=== PATIENT | female | born 1950 | race Caucasian/White ===

== ENCOUNTER 2016-11-03 11:06 | Observation (INO) | payer OTHER ==
[~2016-11-03] VITALS: Ht 160 cm; Wt 83.0 kg
[2016-11-03 11:43] LABS: HEMATOCRIT 42.3 % (36.0-46.0); MCH 28.5 PG (29.0-34.0); MCHC 33.3 G/DL (30.0-36.0); MCV 85.6 FL (83-99); MEAN PLAT.VOLUME 9.6 uM^3 (9.5-12.4); PLATELET COUNT 232 K/uL (156-360); RBC DIS.WIDTH-SD 39.5 % (39-53); RED BLOOD COUNT 4.94 M/uL (3.80-5.20); WHITE BLOOD COUNT 5.1 K/uL (4.1-10.2)
[2016-11-03 11:56] LABS: CHLORIDE 108 mEq/L (99-109); POTASSIUM 4.1 mEq/L (3.7-5.4); SODIUM 142 mEq/L (136-147)
[2016-11-03 11:58] LABS: GLUCOSE 103 mg/dL (70-99)
[2016-11-03 11:59] LABS: ANION GAP 8 MEQ/L (2-14)
[2016-11-03 12:02] LABS: GFR ESTIMATE (CALCULATED) > 59 mL/min/
[2016-11-03 12:03] LABS: UREA NITROGEN (BUN) 16 mg/dL (9-23)
[2016-11-03 12:04] LABS: TROP-I INTERPRETATION NEGATIVE; TROPONIN-I < 0.01 ng/mL (0.0-0.30)
[2016-11-03] MEDS ORDERED: LOVASTATIN10 MG PO (12:44)
[2016-11-03] MEDS ORDERED: OMEPRAZOLE40 M1 PO (12:45)
[2016-11-03] MEDS ORDERED: CARVEDILOL6.25 MG PO (12:45)
[2016-11-03 13:33] LABS: LIPASE 14 U/L (1.0-51.0)
[2016-11-03] MEDS ORDERED: ONE-A-DAY ESSE1 EAC1 PO (15:43)
[2016-11-03] MEDS ORDERED: TYLENOL EXTRA500 MG PO (15:44)
[2016-11-03 17:00] VITALS: BP 133/76
[2016-11-03 20:28] VITALS: BP 114/68
[2016-11-03 21:27] LABS: TROP-I INTERPRETATION NEGATIVE; TROPONIN-I < 0.01 ng/mL (0.0-0.30)
[2016-11-04 01:20] VITALS: BP 99/64
[2016-11-04 04:50] VITALS: BP 116/67
[2016-11-04 06:11] LABS: TROP-I INTERPRETATION NEGATIVE; TROPONIN-I 0.01 ng/mL (0.0-0.30)
[2016-11-04 09:13] VITALS: BP 132/78
[2016-11-04] MEDS ORDERED: NITROSTAT0.4 MG SL (09:39)
== END 2016-11-04 13:11 | disposition home or self-care (01) ==
LOC: EME 11:06 → EDOF 15:42 → 5WEST 16:53
PROVIDERS: Internal Medicine
DX: R07.9 Chest pain, unspecified (principal); R10.13 Epigastric pain; I10 Essential (primary) hypertension; K44.9 Diaphragmatic hernia without obstruction or gangrene; E78.5 Hyperlipidemia, unspecified; Z88.6 Allergy status to analgesic agent; Z82.49 Family history of ischemic heart disease and other diseases of the circulatory system; Z83.3 Family history of diabetes mellitus
CPT/HCPCS: 71020; 80048; 83690; 84484; 85027; 93005; 99281; 99285; G0378; J1650; J2270; J2405

== ENCOUNTER 2017-03-18 09:30 | Emergency (ER) | payer OTHER ==
[~2017-03-18] VITALS: Ht 160 cm; Wt 78.6 kg
[~2017-03-18 09:30] MED LIST: CARVEDILOL6.25 MG PO; LOVASTATIN10 MG PO; NITROSTAT0.4 MG SL; OMEPRAZOLE40 M1 PO; ONE-A-DAY ESSE1 EAC1 PO; TYLENOL EXTRA500 MG PO
[2017-03-18] MEDS ORDERED: NORCO 5/3251 TABLET PO (12:35)
[2017-03-18] MEDS ORDERED: VALIUM5 MG PO (12:35)
[2017-03-18 12:45] VITALS: BP 132/87
== END 2017-03-18 12:45 | disposition home or self-care (01) ==
LOC: EME 09:30
DX: M54.5 Low back pain (principal); M25.552 Pain in left hip; I10 Essential (primary) hypertension; E78.5 Hyperlipidemia, unspecified
CPT/HCPCS: 72100; 99281; 99284; J2270